=== PATIENT | female | born 2005 | race Caucasian/White ===

== ENCOUNTER 2025-10-15 08:27 | Emergency (ER) | payer MEDICAID ==
[~2025-10-15] VITALS: Ht 154.9 cm; Wt 69.6 kg
[2025-10-15 08:34] VITALS: TEMP 97.2
[2025-10-15 09:28] LABS: URINE HCG NEGATIVE (NEG)
[2025-10-15 09:29] LABS: LEUKOCYTE ESTERASE ,URINE NEGATIVE (Neg); NITRITES, URINE NEGATIVE (Neg); OCCULT BLOOD,URINE NEGATIVE (Neg)
[2025-10-15 09:36] LABS: UA COLLECTION TYPE CLN CATCH MIDSTREAM
[2025-10-15 09:39] LABS: MUCUS STRANDS MANY /LPF (Neg); SQUAMOUS EPITHELIAL CELL,UR MODERATE /LPF (FEW)
[2025-10-15 10:55] LABS: MEAN PLATELET VOLUME 8.5 FL (7.4-10.4); RED CELL DISTRIBUTION WIDTH 15.6 % (11.5-14.5)
[2025-10-15 11:11] LABS: CREATININE 0.61 MG/DL (0.40-0.90); TOTAL CARBON DIOXIDE 26.9 MMOL/L (24-32); eCRCL 111 ML/MIN; eGFR > 90 ML/MIN
--- NOTE | 2025-10-15 11:24 | Physician Documentation ---
History of Present Illness Chief Complaint: Abdominal Pain w/vomiting Stated Complaint: GALLBLADDER PAIN Time Seen by MD: 11:12 HPI 20-year-old female presenting with right upper quadrant abdominal pain that has been ongoing for the past 4-1/2 hours. Patient states that she woke up in severe pain this morning. The pain has eased up now but states that initially it was very severe. Patient also had nausea and couple episodes of vomiting. She states the pain radiates from the right upper quadrant to her right flank. She otherwise denies any constipation, diarrhea, fever, chills or any other associated symptoms. Patient reports that she has a history of gallstones that were diagnosed about a year ago. Medication Reconciliation Allergies: Coded Allergies: No Known Allergies (Unverified , 10/15/25) Review of Systems All Other Systems at this time: Reviewed and Negative Physical Exam Vital Signs: Temperature: 97.2, Source: Temporal, Heart Rate: 68, Respiratory Rate: 18, BP: 98/59, Pulse Oximetry: 98, Weight: 69.600 Oxygen Flow Rate: 0 Physical Exam I have reviewed the triage vitals. CONST: Well developed and well nourished. In no acute distress HENT: Head Atraumatic EYES: Pupils are equal, round and reactive to light. Normal conjunctiva NECK: Normal range of motion. Supple. CARDIO: Normal rate and regular rhythm. No murmurs, rubs, or gallops. S1, S2. PULM/CHEST: No respiratory distress. Lungs clear to auscultation. No wheeze ABD: Soft, there is tenderness to palpation over the right upper quadrant. Nondistended. Bowel sounds normal. No guarding. : Exam deferred MSK: No edema. No deformity. NEURO: Alert and oriented to person, place and time. Moving all extremities SKIN: Warm and dry. PSYCH: Normal mood and affect. Good eye contact. Progress Results/Orders Results/Orders Orders - LIGIA HYDE MD Cult Urine + [address] (10/15/25 09:39) Ultrasound Of Abdomen (10/15/25 ) Completed Orders - LIGIA HYDE MD Hcg, Ur Ql (10/15/25 08:38) Cbc/Diff (10/15/25 08:38) BMP (10/15/25 08:38) Lipase (10/15/25 08:38) CMP (10/15/25 08:38) Ua W/Microscopic, Cult If Ind (10/15/25 08:38) Vital Signs 10/15/25 08:34 Temp 97.2 Pulse 68 Resp 18 B/P (MAP) 98/59 Pulse Ox 98 O2 Flow Rate 0 Laboratory Tests Test 10/15/25 08:38 10/15/25 10:46 Urine Specimen Description Cln catch midstream Urine Color Yellow Urine Clarity Slightly cloudy Urine pH 5.5 Urine Specific [place] >=1.030 Urine Protein Negative Urine Glucose (UA) Negative Urine Ketones Trace H Urine Occult Blood Negative Urine Nitrite Negative Urine Bilirubin Negative Urine Urobilinogen 0.2 Urine Leukocyte Esterase Negative Urine RBC 0-2 Urine WBC 10-20 H Urine Squamous Epithelial Cells Moderate Urine Bacteria 1+ Urine Mucus Many Urine Culture Indicated Indicated Volume Urine Centrifuged 10 ml Urine HCG, Qualitative Negative Urine Comment White Blood Count 12.6 H Red Blood Count 4.69 Hemoglobin 11.2 L Hematocrit 34.6 L Mean Corpuscular Volume 73.8 L Mean Corpuscular Hemoglobin 23.8 L Mean Corpuscular Hemoglobin Concent 32.3 L Red Cell Distribution Width 15.6 H Platelet Count 254 Mean Platelet Volume 8.5 Neutrophils (%) (Auto) 81.3 H Lymphocytes (%) (Auto) 13.5 L Monocytes (%) (Auto) 4.6 Eosinophils (%) (Auto) 0.3 Basophils (%) (Auto) 0.3 Neutrophils # (Auto) 10.3 H Lymphocytes # (Auto) 1.7 Monocytes # (Auto) 0.6 Eosinophils # (Auto) 0.0 Basophils # (Auto) 0.0 CBC Comment Sodium Level 141 Potassium Level 4.3 Chloride Level 108 H Carbon Dioxide Level 26.9 Anion Gap 6 L Blood Urea Nitrogen 13 Creatinine 0.61 Estimated GFR/1.73 m2 > 90 BUN/Creatinine Ratio 21.3 H Glucose Level 104 Calcium Level 8.7 Total Bilirubin 0.6 Aspartate Amino Transf (AST/SGOT) 53 H Alanine Aminotransferase (ALT/SGPT) 27 Alkaline Phosphatase 126 Total Protein 7.3 Albumin 3.4 Globulin 3.9 Albumin/Globulin Ratio 0.9 L Lipase 44 Chemistry Comments Microbiology Date/Time Source Procedure Growth Status 10/15/25 09:39 Urine Clean Catch Midstream Urine Culture - Preliminary Culture received. Resulted EKG/XRAY/CT/US/VASC/MRI CT : Impression CLINICAL HISTORY: R flank pain TECHNIQUE: CT of the abdomen and pelvis was performed without intravenous contrast. This exam was performed according to our departmental dose optimization program. Up-to-date CT equipment and radiation dose reduction techniques are utilized as appropriate. CTDI: 16.05 DLP: 109.07 WID: COMPARISON: US ULTRASOUND OF ABDOMEN on DOS: 10/15/25 FINDINGS: Lower Thorax: Normal-sized heart. Lung bases are clear. Liver and Biliary system: Unremarkable. Spleen: Unremarkable. Adrenal Glands and Kidneys: Normal adrenal glands. There are multiple nonobstructing right lower pole renal calculi for example 1 of the calculi measuring 9 mm on series 2, image 45. No hydronephrosis or left nephrolithiasis. Pancreas and Retroperitoneum: Unremarkable. Aorta and Major Vessels: Unremarkable. Bowel, Mesentery and Peritoneal space: Normal caliber small and large bowel. Normal appendix. There is no free air or fluid collection. Pelvis: Unremarkable. Abdominal wall and Osseous Structures: Unremarkable. IMPRESSION: 1. No acute abnormality. 2. Multiple nonobstructing right lower pole renal calculi. Ultrasound : Impression US ULTRASOUND OF ABDOMEN HISTORY: RUQ pain COMPARISON: None TECHNIQUE: Transverse and longitudinal grayscale and color sonographic images were obtained of the abdomen. FINDINGS: Liver: - Size: 16.9 cm - Echogenicity: Normal - Surface Contour: Smooth - Liver Lesion(s): None - Portal Vein: Patent and forward flowing. - Bile Ducts: Normal. The common bile duct measures 3.5 mm. Gallbladder: Normal. The sonographic plunkett sign is negative. Pancreas: Portions not obscured by bowel gas are normal. Kidneys: - Right kidney size: 11.1 cm. There is no hydronephrosis, renal calculi, or mass lesion. Aorta and Inferior Vena Cava: The visualized portions of the abdominal aorta and intrahepatic vena cava are normal. Other: None IMPRESSION: Unremarkable abdominal ultrasound. Medical Decision Making Additional information obtaine: N/A Findings - Differential Dx:Considerations: Bowel obstruction, Cholelithasis, Constipation, Gastritis/PUD, Gastroenteritis, Urinary obstruction, Urinary tract infection, Urolithiasis Additional Comments 20-year-old female presenting with right upper quadrant and right flank pain. Labs and imaging were ordered. Lab workup was grossly unremarkable. I did do ultrasound of the right upper quadrant to look at the gallbladder specifically given her history of gallstones. The ultrasound was normal with no evidence of gallstones or cholecystitis. A follow up CT of the abdomen and pelvis was done as well which showed multiple small nonobstructing right renal pole calculi. I suspect that this is likely cause of the patient's pain. On reassessment the patient was grossly improved without any intervention in the ED. Pain has resolved on its own. I educated the patient on the findings. I advised her to ensure she is drinking lots of fluids and avoid soda. Also advised on ibuprofen or Tylenol as needed for pain control. She is to follow up with the primary care physician in the next 2-5 days with instructions to return to the ED with any acutely worsening symptoms. All social determinant of health and chronic medical conditions were considered. Departure Disposition: HOME / SELF CARE / HOMELESS Impression: Primary Impression: Nephrolithiasis Condition: Improved Discharge Instructions: Kidney Stones Additional Instructions: You have been diagnosed with kidney stones in your right kidney. Please ensure that you are drinking plenty of fluids. Please avoid too much soda. You may take ibuprofen and/or Tylenol as needed for pain control. Monitor your symptoms closely. Follow up with her primary care physician in the next 2-5 days. Return to the ED with any acutely worsening symptoms. Referrals: NO PRIMARY CARE PROVIDER (PCP) Signature Scribe Signature: 1 Attestation: The note accurately reflects work and decisions made by me.Ligia Butcher MD 10/15/25 15:01 LIGIA HYDE MD Oct 15, 2025 11:24
--- NOTE | 2025-10-15 13:18 | RADIOLOGY REPORT ---
US ULTRASOUND OF ABDOMEN HISTORY: RUQ pain COMPARISON: None TECHNIQUE: Transverse and longitudinal grayscale and color sonographic images were obtained of the abdomen. FINDINGS: Liver: - Size: 16.9 cm - Echogenicity: Normal - Surface Contour: Smooth - Liver Lesion(s): None - Portal Vein: Patent and forward flowing. - Bile Ducts: Normal. The common bile duct measures 3.5 mm. Gallbladder: Normal. The sonographic plunkett sign is negative. Pancreas: Portions not obscured by bowel gas are normal. Kidneys: - Right kidney size: 11.1 cm. There is no hydronephrosis, renal calculi, or mass lesion. Aorta and Inferior Vena Cava: The visualized portions of the abdominal aorta and intrahepatic vena cava are normal. Other: None IMPRESSION: Unremarkable abdominal ultrasound.
--- NOTE | 2025-10-15 14:43 | RADIOLOGY REPORT ---
CLINICAL HISTORY: R flank pain TECHNIQUE: CT of the abdomen and pelvis was performed without intravenous contrast. This exam was performed according to our departmental dose optimization program. Up-to-date CT equipment and radiation dose reduction techniques are utilized as appropriate. CTDI: 16.05 DLP: 109.07 WID: COMPARISON: US ULTRASOUND OF ABDOMEN on DOS: 10/15/25 FINDINGS: Lower Thorax: Normal-sized heart. Lung bases are clear. Liver and Biliary system: Unremarkable. Spleen: Unremarkable. Adrenal Glands and Kidneys: Normal adrenal glands. There are multiple nonobstructing right lower pole renal calculi for example 1 of the calculi measuring 9 mm on series 2, image 45. No hydronephrosis or left nephrolithiasis. Pancreas and Retroperitoneum: Unremarkable. Aorta and Major Vessels: Unremarkable. Bowel, Mesentery and Peritoneal space: Normal caliber small and large bowel. Normal appendix. There is no free air or fluid collection. Pelvis: Unremarkable. Abdominal wall and Osseous Structures: Unremarkable. IMPRESSION: 1. No acute abnormality. 2. Multiple nonobstructing right lower pole renal calculi.
[2025-10-15 15:20] VITALS: BP 113/72; PULSE 79; RESP 16; O2SAT 99
== END 2025-10-15 15:22 | disposition home or self-care (01) ==
LOC: ER 08:28
DX: N20.0 Calculus of kidney (principal)
CPT/HCPCS: 36415; 74176; 76700; 80053; 81001; 81025; 83690; 85025; 87088; 99284